=== PATIENT | female | born 1990 | race Caucasian/White ===

== ENCOUNTER 2017-01-07 04:00 | Emergency (ER) | payer OTHER ==
[~2017-01-07] VITALS: Ht 167.6 cm; Wt 128.6 kg
[~2017-01-07 04:00] MED LIST: ALBU6.7H INH; CYCL-36 PO; SULF1TAB47 PO
[2017-01-07 04:08] VITALS: BP 196/120; PULSE 87; RESP 18; TEMP 98.4; O2SAT 97
[2017-01-07] MEDS ORDERED: SODIUM CHLOR 0.9% 1000 ML INJ 1,000 ML IV ONE (04:26)
[2017-01-07] MEDS ORDERED: SODIUM CHLORIDE 0.9% FLUSH 10 ML FLUSH IVF PRN (04:30)
[2017-01-07] MEDS ORDERED: HYDROmorphone HCL PF 1 MG/ML VIAL IV PUSH ONE (04:30)
[2017-01-07] MEDS ORDERED: ONDANSETRON HCL 4 MG/2 ML VIAL IV PUSH ONE (04:30)
[2017-01-07] MEDS ORDERED: KETOROLAC TROMETHAMINE 30 MG/ML (IVP) VIAL IV PUSH ONE (04:30)
--- NOTE | 2017-01-07 04:30 | PD ---
HPI Chief Complaint: Flank/Kidney Pain Time Seen by Provider: 04:13 Travel History International Travel<30 days: No Contact w/Intl Traveler<30days: No Traveled to known affect area: No History of Present Illness HPI The patient is a 26-year-old female that complains of sudden onset left flank pain at 0300 this morning. She does have a history of kidney stones. She does not have a local urologist. She denies any fever, dysuria, frequency or urgency. She does have nausea without vomiting. Her pain is sharp and an 8/ 10. He states this feels like her previous kidney stones. [facility] Past Medical History Asthma: Yes Anxiety: Yes Depression: Yes Cancer: No Cardiovascular Problems: No Diminished Hearing: No Endocrine: No Genitourinary: No Immune Disorder: No Musculoskeletal: No Psychiatric: Yes Reproductive: No Respiratory: Yes (HX PNEUMONIA) Immunizations Current: Yes Tetanus Vaccination: Unknown Influenza Vaccination: No ?: Not LMP: 01-07-17 Ovarian Cysts: Yes Past Surgical History Section: Yes Gynecologic Surgery: Yes (ovarian cyst drainage - Jan 15) Social History Alcohol Use: No Tobacco Use: No Substance Use: No Allergies-Medications (Allergen,Severity, Reaction): Coded Allergies: penicillin G (Unverified Allergy, Mild, 01/07/17) Reported Meds & Prescriptions Reported Meds & Active Scripts Active No Active Prescriptions or Reported Medications Review of Systems Except as stated in HPI: all other systems reviewed are Neg Physical Exam Narrative GENERAL: The patient is alert, oriented 3 in moderate to severe distress with her left flank pain. Her vital signs show blood pressure 196/120 but otherwise normal. SKIN: Focused skin assessment warm/dry. No skin rashes noted. HEAD: Atraumatic. Normocephalic. EYES: Pupils equal and round. No scleral icterus. No injection or drainage. ENT: No nasal bleeding or discharge. Mucous membranes pink and moist. NECK: Trachea midline. No JVD. CARDIOVASCULAR: Regular rate and rhythm. No murmur appreciated. RESPIRATORY: No accessory muscle use. Clear to auscultation. Breath sounds equal bilaterally. GASTROINTESTINAL: Abdomen soft, with slight tenderness to direct palpation over the left flank and half way to the left UVJ from the left kidney, nondistended. Hepatic and splenic margins not palpable. No guarding or rebound is present. MUSCULOSKELETAL: No obvious deformities. No clubbing. No cyanosis. No edema. NEUROLOGICAL: Awake and alert. No obvious cranial nerve deficits. Motor grossly within normal limits. Normal speech. PSYCHIATRIC: Appropriate mood and affect; insight and judgment normal. Data Data Last Documented VS Vital Signs Date Time Temp Pulse Resp B/P (MAP) Pulse Ox O2 Delivery O2 Flow Rate FiO2 01/07/17 05:10 16 01/07/17 04:44 89 147/87 (107) 97 Room Air 01/07/17 04:08 98.4 Orders Orders Complete Blood Count With Diff (01/07/17 04:26) Basic Metabolic Panel (Bmp) (01/07/17 04:26) Ct Abd/Pel W/O Iv Contrast (01/07/17 04:26) Ecg Monitoring (01/07/17 04:26) Iv Access Insert/Monitor (01/07/17 04:26) Ketorolac Inj (Toradol Inj) (01/07/17 04:30) Ondansetron Inj (Zofran Inj) (01/07/17 04:30) Sodium Chloride 0.9% Flush (Ns Flush) (01/07/17 04:30) Sodium Chlor 0.9% 1000 Ml Inj (Ns 1000 M (01/07/17 04:26) Hydromorphone Pf Inj (Dilaudid Pf Inj) (01/07/17 04:30) Urinalysis - C+S If Indicated (01/07/17 04:30) Ed Urine Pregnancytest Poc (01/07/17 04:31) Tamsulosin (Flomax) (01/07/17 04:45) Labs Laboratory Tests Test 01/07/17 04:30 White Blood Count 8.9 TH/MM3 Red Blood Count 4.63 MIL/MM3 Hemoglobin 13.3 GM/DL Hematocrit 39.9 % Mean Corpuscular Volume 86.2 FL Mean Corpuscular Hemoglobin 28.7 PG Mean Corpuscular Hemoglobin Concent 33.3 % Red Cell Distribution Width 12.4 % Platelet Count 341 TH/MM3 Mean Platelet Volume 7.6 FL Neutrophils (%) (Auto) 52.7 % Lymphocytes (%) (Auto) 37.0 % Monocytes (%) (Auto) 7.4 % Eosinophils (%) (Auto) 2.4 % Basophils (%) (Auto) 0.5 % Neutrophils # (Auto) 4.7 TH/MM3 Lymphocytes # (Auto) 3.3 TH/MM3 Monocytes # (Auto) 0.7 TH/MM3 Eosinophils # (Auto) 0.2 TH/MM3 Basophils # (Auto) 0.0 TH/MM3 CBC Comment DIFF FINAL Differential Comment Urine Color YELLOW Urine Turbidity SLIGHT Urine pH 6.0 Urine Specific [place] 1.019 Urine Protein NEG mg/dL Urine Glucose (UA) NEG mg/dL Urine Ketones NEG mg/dL Urine Occult Blood LARGE Urine Nitrite NEG Urine Bilirubin NEG Urine Leukocyte Esterase SMALL Urine RBC 20-24 /hpf Urine WBC 6-8 /hpf Urine Squamous Epithelial Cells > 8 /hpf Urine Bacteria FEW /hpf Urine Yeast with Hyphae OCC Urine Yeast (Budding) OCC Microscopic Urinalysis Comment CULT NOT INDICATED Blood Urea Nitrogen 11 MG/DL Creatinine 0.84 MG/DL Random Glucose 97 MG/DL Calcium Level 8.1 MG/DL Sodium Level 141 MEQ/L Potassium Level 3.5 MEQ/L Chloride Level 106 MEQ/L Carbon Dioxide Level 27.5 MEQ/L Anion Gap 8 MEQ/L Estimat Glomerular Filtration Rate 81 ML/MIN [facility] Medical Decision Making Medical Screen Exam Complete: Yes Emergency Medical Condition: Yes Medical Record Reviewed: Yes Interpretation(s) [id number] urine test is negative. The urinalysis shows slight turbidity, large blood, small leukocyte esterase with 20-24 red cells and 6-8 white cells and is otherwise unremarkable and culture is not indicated. The basic metabolic profile shows a GFR of 81 but is otherwise normal. The CBC is normal. The CT abdomen/pelvis without IV contrast shows 2 stones in the distal left ureter. One measures 3 mm and one measures 6 mm. These cause left hydroureter and obstruction of the upper pole of the collecting system. 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 Also there are bilateral nonobstructing renal stones measuring up to 6 mm. Differential Diagnosis Ureteral stone, urinary tract infection, colitis, , ectopic , ruptured ovarian cyst Narrative Course The patient has 2 ureteral stones. One measures 3 mm and the other 6 x 3 mm. They're at least 4 other nonobstructing right renal stones measuring up to 6 mm. It is now 0545 and the patient is fairly comfortable. She will get Flomax , Phenergan, Percocet and Motrin. Diagnosis Primary Impression: Left ureteral calculus Additional Instructions: As we discussed, take the ibuprofen regularly, 1 tablet 3 times daily. The Flomax also is taken regularly, once daily. The Flomax opens up the ureter. Also, as we discussed, do not drink alcohol or drive on the Percocet. Phenergan , which is for nausea, can also make you feel a little sleepy. Call urology Tuesday to set up appointment. They will need to advise you how to get rid of the stones that you are passing as well as the ones in your kidney. Med/Other Pt SpecificInfo: Prescription(s) given Scripts Oxycodone-Acetaminophen (Percocet) 7.5-325 mg Tab 1 TAB PO Q4H Y for PAIN, #30 TAB 0 Refills Prov: Mahesh Gregorio MD 01/07/17 Promethazine (Phenergan) 25 Mg Tablet 25 MG PO Q6H Y for NAUSEA OR VOMITING, #30 TAB 0 Refills Prov: Mahesh Gregorio MD 01/07/17 Tamsulosin (Flomax) 0.4 Mg Cap 0.4 MG PO HS for Manage Prostate Problems, #30 CAP 0 Refills Prov: Mahesh Gregorio MD 01/07/17 Ibuprofen (Ibuprofen) 600 Mg Tab 600 MG PO TID, #33 TAB 0 Refills Prov: Mahesh Gregorio MD 01/07/17 Disposition: 01 DISCHARGE HOME Condition: Stable Mahesh Gregorio MD Jan 07, 2017 04:30
[2017-01-07 04:38] LABS: BLOOD, URINE LARGE (NEG); GLUCOSE,URINE NEG (NEG); KETONE, URINE NEG (NEG); NITRITE,URINE NEG (NEG)
[2017-01-07 04:39] LABS: AUTOMATED NEUTROPHIL # 4.7 TH/MM3 (1.8-7.7); BASOPHIL % 0.5 % (0.0-2.0); EOSINOPHIL # 0.2 TH/MM3 (0-0.4); EOSINOPHIL % 2.4 % (0.0-4.0); HEMATOCRIT 39.9 % (35.0-46.0); HEMO FLAGS DIFF FINAL; LYMPHOCYTE # 3.3 TH/MM3 (1.0-4.8); MEAN CELL VOLUME 86.2 FL (80.0-100.0); MEAN CORPUSCULAR HEMOGLOBIN 28.7 PG (27.0-34.0); MEAN CORPUSCULAR HGB CONC 33.3 % (32.0-36.0); MONO % 7.4 % (0.0-8.0); NEUT % 52.7 % (16.0-70.0); PLATELET COUNT 341 TH/MM3 (150-450); RED BLOOD COUNT 4.63 MIL/MM3 (4.00-5.30); RED CELL DISTRIBUTION WIDTH 12.4 % (11.6-17.2); WHITE BLOOD COUNT 8.9 TH/MM3 (4.0-11.0)
[2017-01-07 04:40] VITALS: BP 185/100; PULSE 81; RESP 18; O2SAT 97
[2017-01-07 04:41] LABS: URINE COLOR YELLOW (YELLW/STRAW)
[2017-01-07 04:44] VITALS: BP 147/87; PULSE 89; RESP 16; O2SAT 97
[2017-01-07 04:44] LABS: BACTERIA, URINE FEW /hpf; COMMENT (UR) CULT NOT INDICATED; CULTURE IF INDICATED CULT NOT INDICATED; SQUAMOUS EPITHELIAL CELL URINE > 8 /hpf (0-5)
[2017-01-07] MEDS ORDERED: TAMSULOSIN HCL 0.4 MG CAP PO ONE (04:45)
[2017-01-07 04:48] LABS: POTASSIUM 3.5 MEQ/L (3.5-5.1)
[2017-01-07 04:51] LABS: BICARBONATE 27.5 MEQ/L (21.0-32.0)
--- NOTE | 2017-01-07 05:33 | RADRPT ---
EXAM DATE/TIME: 01/07/2017 04:46 [facility] COMPARISON: No previous studies available for comparison. INDICATIONS : Left flank pain. ORAL CONTRAST: No oral contrast ingested. RADIATION DOSE: 27.81 CTDIvol (mGy) ; Patient body habitus MEDICAL HISTORY : Renal calculi. Ovarian cysts, renal stent SURGICAL HISTORY : section. ENCOUNTER: Initial ACUITY: 1 day PAIN SCALE: 8/10 LOCATION: Left flank TECHNIQUE: Volumetric scanning of the abdomen and pelvis was performed. Using automated exposure control and ad justment of the mA and/or kV according to patient size, radiation dose was kept as low as reasonably achievable to obtain optimal diagnostic quality images. DICOM format image data is available electro nically for review and comparison. FINDINGS: LOWER LUNGS: Not visualized. LIVER: Homogeneous density without lesion. There is no dilation of the biliary tree. No calcified gallston es. SPLEEN: Normal size without lesion. PANCREAS: Within normal limits. 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 There are at least 4 nonobstructing right renal stones measuring up to 6 mm and there are multiple small left nonobstructing renal stones. An exophytic cyst arises from the l eft mid kidney measuring 1.4 cm. ADRENAL GLANDS: Within normal limits. VASCULAR: There is no aortic aneurysm. BOWEL/MESENTERY: The stomach, small bowel, and colon demonstrate no acute abnormality. There is no free intraperitone al air or fluid. ABDOMINAL WALL: Within normal limits. RETROPERITONEUM: There is no lymphadenopathy. BLADDER: No wall thickening or mass. REPRODUCTIVE: No acute abnormality. A menstrual cup is present within the vagina. INGUINAL: There is no lymphadenopathy or hernia. MUSCULOSKELETAL: No acute abnormality. CONCLUSION: 1. There are 2 stones in the distal left ureter measuring 3 mm and 6 mm and causing left hydroureter and obstruction of the left upper pole collecting system. There is a duplicated left collecting syst em. 2. There are bilateral nonobstructing renal stones measuring up to 6 mm. Som Strickland MD on January 07, 2017 at 5:24 Board Certified Radiologist. This report was verified electronically.
[2017-01-07 05:43] VITALS: BP 166/98; PULSE 81; RESP 18; O2SAT 98
[2017-01-07] MEDS ORDERED: PERC7.5T13 PO (05:46)
[2017-01-07] MEDS ORDERED: IBUP-232 PO (05:46)
[2017-01-07] MEDS ORDERED: PROM25TA10 PO (05:46)
[2017-01-07] MEDS ORDERED: TAMS5CAP PO (05:46)
== END 2017-01-07 06:05 | disposition home or self-care (01) ==
LOC: PHED 04:00
DX: N20.1 Calculus of ureter (principal); N20.0 Calculus of kidney; R11.0 Nausea; Z87.442 Personal history of urinary calculi; Z87.09 Personal history of other diseases of the respiratory system; Z86.59 Personal history of other mental and behavioral disorders; Z87.42 Personal history of other diseases of the female genital tract
CPT/HCPCS: 74176; 80048; 81001; 84703; 85025; 96361; 96374; 96375; 99285; J1170; J1885; J2405; J7030

== ENCOUNTER 2017-02-15 17:45 | Emergency (ER) | payer OTHER ==
[~2017-02-15 17:45] MED LIST changes: -ALBU6.7H INH; -CYCL-36 PO; +IBUP-232 PO; +PERC7.5T13 PO; +PROM25TA10 PO; -SULF1TAB47 PO; +TAMS5CAP PO
[2017-02-15 17:57] VITALS: BP 148/83; PULSE 101; RESP 20; TEMP 97.7; O2SAT 97
[2017-02-15] MEDS ORDERED: ACETAMINOPHEN/HYDROcodone 325 MG/5 MG TAB PO ONE (19:30)
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
[2017-02-15] MEDS ORDERED: CYCL10TA PO (19:52)
[2017-02-15] MEDS ORDERED: DICL75TA PO (19:52)
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
== END 2017-02-15 20:38 | disposition home or self-care (01) ==
LOC: NEPK 17:45
DX: M54.2 Cervicalgia (principal); M54.9 Dorsalgia, unspecified; N20.0 Calculus of kidney; V49.49XA Driver injured in collision with other motor vehicles in traffic accident, initial encounter; Y92.411 Interstate highway as the place of occurrence of the external cause; Z87.442 Personal history of urinary calculi
CPT/HCPCS: 72040; 72072; 99284

== ENCOUNTER 2017-03-24 19:38 | Emergency (ER) | payer OTHER ==
[~2017-03-24] VITALS: Ht 167.6 cm; Wt 126.0 kg
[~2017-03-24 19:38] MED LIST changes: +CYCL10TA PO; +DICL75TA PO
[2017-03-24 19:48] VITALS: BP 170/100; PULSE 89; RESP 18; TEMP 98.2; O2SAT 100
[2017-03-24 20:34] VITALS: BP 103/71; PULSE 86; RESP 16; O2SAT 100
[2017-03-24 20:56] VITALS: BP_SYST 125; BP_SYST 130; BP_DIAS 65; BP_DIAS 85; RESP 16; O2SAT 100
[2017-03-24] MEDS ORDERED: SODIUM CHLORIDE 0.9% FLUSH 10 ML FLUSH IVF PRN (21:00)
--- NOTE | 2017-03-24 21:18 | RADRPT ---
EXAM DATE/TIME: 03/24/2017 21:05 [facility] COMPARISON: No previous studies available for comparison. INDICATIONS : Headaches and heart palpitations. MEDICAL HISTORY : None. SURGICAL HISTORY : None. ENCOUNTER: Initial ACUITY: 1 day PAIN SCORE: 0/10 LOCATION: Bilateral chest FINDINGS: A single view of the chest demonstrates the lungs to be symmetrically aerated without evidence of mas s, infiltrate or effusion. The cardiomediastinal contours are unremarkable. Osseous structures are intact. CONCLUSION: 1. No acute findings. Ga العلي MD on March 24, 2017 at 21:17 Board Certified Radiologist. This report was verified electronically.
[2017-03-24 21:27] LABS: AUTOMATED NEUTROPHIL # 4.5 TH/MM3 (1.8-7.7); BASOPHIL # 0.1 TH/MM3 (0-0.2); BASOPHIL % 1.3 % (0.0-2.0); EOSINOPHIL # 0.2 TH/MM3 (0-0.4); EOSINOPHIL % 2.4 % (0.0-4.0); HEMATOCRIT 37.7 % (35.0-46.0); HEMOGLOBIN 12.9 GM/DL (11.6-15.3); LYMPH % 31.6 % (9.0-44.0); LYMPHOCYTE # 2.5 TH/MM3 (1.0-4.8); MEAN CELL VOLUME 86.6 FL (80.0-100.0); MEAN CORPUSCULAR HEMOGLOBIN 29.7 PG (27.0-34.0); MEAN CORPUSCULAR HGB CONC 34.3 % (32.0-36.0); MEAN PLATELET VOLUME 7.8 FL (7.0-11.0); MONO % 6.2 % (0.0-8.0); MONOCYTE # 0.5 TH/MM3 (0-0.9); NEUT % 58.5 % (16.0-70.0); PLATELET COUNT 284 TH/MM3 (150-450); RED BLOOD COUNT 4.35 MIL/MM3 (4.00-5.30); RED CELL DISTRIBUTION WIDTH 11.9 % (11.6-17.2); WHITE BLOOD COUNT 7.8 TH/MM3 (4.0-11.0)
[2017-03-24 21:34] LABS: CHLORIDE 107 MEQ/L (98-107); SODIUM (NA) 139 MEQ/L (136-145)
[2017-03-24 21:37] LABS: BICARBONATE 30.3 MEQ/L (21.0-32.0); BLOOD UREA NITROGEN 10 MG/DL (7-18); CALCIUM 8.3 MG/DL (8.5-10.1); GLUCOSE,RANDOM 98 MG/DL (74-106); MAGNESIUM 2.2 MG/DL (1.5-2.5)
[2017-03-24 21:38] LABS: BILIRUBIN, URINE NEG (NEG); BLOOD, URINE NEG (NEG); GLUCOSE,URINE NEG (NEG); KETONE, URINE NEG (NEG); NITRITE,URINE NEG (NEG); URINE LEUKOCYTE ESTERASE NEG (NEG)
[2017-03-24 21:39] LABS: INTERNATIONAL NORMALIZED RATIO 1.1 RATIO
[2017-03-24 21:41] LABS: CREATININE 0.71 MG/DL (0.50-1.00); GLOMERULAR FILTRATION RATE 97 ML/MIN (>89)
[2017-03-24 21:45] LABS: TROPONIN I LESS THAN 0.02 NG/ML (0.02-0.05)
[2017-03-24 21:50] LABS: URINE COLOR YELLOW (YELLW/STRAW)
[2017-03-24 21:51] LABS: BACTERIA, URINE FEW /hpf; SQUAMOUS EPITHELIAL CELL URINE 0-5 /hpf (0-5); WBC, URINE 0-2 /hpf (0-5)
[2017-03-24 22:03] VITALS: BP 142/81; PULSE 81; RESP 18; O2SAT 100
[2017-03-24] MEDS: KETOROLAC TROMETHAMINE 30 MG/ML (IVP) VIAL IV PUSH ONE ×2 (22:30→22:39)
--- NOTE | 2017-03-24 22:52 | PD ---
HPI Chief Complaint: Cardiac Complaint Time Seen by Provider: 20:49 Travel History International Travel<30 days: No Contact w/Intl Traveler<30days: No Traveled to known affect area: No History of Present Illness HPI 27-year-old female presents to the emergency department for complaint of elevated blood pressure and headache. Patient states that she has been diagnosed with hypertension and was previously placed on HCTZ but has not been taking any blood pressure medications of late. Patient has been doing well. Patient states when she noticed that she was having a headache she decided to check her blood pressure and identify that it was elevated. Patient states she has a history of migraine headaches has had them for some time and typically has an episode once a week with photophobia as well as sound sensitivity headache pain and nausea. Patient denies sudden onset thunderclap or worst ever headache. Patient denies any visual disturbance other than mild photophobia. Patient had no nausea or vomiting. Patient states when she arrived to the emergency department she becomes very anxious in the hospital setting started noticing some chest tightness patient also had some mild shortness of breath and while in the waiting room used her albuterol inhaler as she has a history of asthma and her symptoms resolved. Patient denies any upper extremity or lower extremity numbness tingling or weakness. Patient had no altered mentation change in speech or balance disturbance. Patient rates her overall pain 8/10 in intensity. She states she is also concerned that she may be because she has been attempting to become and last intercourse was 3 days ago. Last period was last month, 03/06/17, and normal for her. Patient also complains of left flank pain and is concerned she may have a kidney stone because she has kidney stone history no dysuria frequency urgency or hematuria also no report of vaginal discharge or vaginal bleeding. [facility] Past Medical History Narrative Medical Clinical morbid obesity, kidney stone, migraine, asthma, anxiety depression, hypertension; ovarian cyst drainage; no tobacco use; nursing notes reviewed Asthma: Yes Anxiety: Yes Depression: Yes Cancer: No Cardiovascular Problems: Yes (hypertension) Diminished Hearing: No Endocrine: No Genitourinary: No Immune Disorder: No Musculoskeletal: No Psychiatric: Yes Reproductive: No Respiratory: Yes (HX PNEUMONIA) Immunizations Current: Yes Tetanus Vaccination: < 5 Years Influenza Vaccination: No ?: Unknown LMP: 03/06/17 Ovarian Cysts: Yes Past Surgical History Section: Yes Gynecologic Surgery: Yes (ovarian cyst drainage - Jan 15) Other Surgery: Yes Social History Alcohol Use: No Tobacco Use: No Substance Use: No Allergies-Medications (Allergen,Severity, Reaction): Coded Allergies: penicillin G (Unverified Allergy, Mild, 01/07/17) Reported Meds & Prescriptions Reported Meds & Active Scripts Active Flexeril (Cyclobenzaprine HCl) 10 Mg Tab 10 Mg PO TID Diclofenac Sodium DR (Diclofenac Sodium) 75 Mg Tabdr 75 Mg PO BID Percocet (Oxycodone-Acetaminophen) 7.5-325 mg Tab 1 Tab PO Q4H PRN Phenergan (Promethazine HCl) 25 Mg Tablet 25 Mg PO Q6H PRN Flomax (Tamsulosin HCl) 0.4 Mg Cap 0.4 Mg PO HS Ibuprofen 600 Mg Tab 600 Mg PO TID Review of Systems Except as stated in HPI: all other systems reviewed are Neg General / Constitutional: No: Fever, Chills Eyes: Positive: Photophobia, No: Diploplia, Blurred Vision HENT: Positive: Headaches, No: Neck Stiffness, Neck Pain Cardiovascular: Positive: Chest Pain or Discomfort (transient -none now) Respiratory: Positive: Shortness of Breath (with asthma symptoms), No: Cough Gastrointestinal: No: Nausea, Vomiting, Diarrhea, Abdominal Pain Genitourinary: No: Urgency, Frequency, Dysuria Musculoskeletal: No: Myalgias, Arthralgias Skin: No Rash Neurologic: Positive: Headache, No: Weakness, Dizziness, Syncope, Focal Abnormalities, Coordination Problem, Ataxia, Change in Mentation, Slurred Speech , Paresthesia Psychiatric: No: Anxiety Hematologic/Lymphatic: No: Lymph Node Enlargement Physical Exam Narrative GENERAL: Well-developed well-nourished female in no acute distress or respiratory distress; GCS 15 SKIN: Warm and dry. HEAD: Atraumatic. Normocephalic. EYES: Pupils equal and round. No scleral icterus. No injection or drainage. ENT: No nasal bleeding or discharge. Mucous membranes pink and moist. NECK: Trachea midline. No JVD. CARDIOVASCULAR: Regular rate and rhythm. RESPIRATORY: No accessory muscle use. Clear to auscultation. Breath sounds equal bilaterally. GASTROINTESTINAL: Abdomen soft, non-tender, nondistended. Hepatic and splenic margins not palpable. MUSCULOSKELETAL: Extremities without clubbing, cyanosis, or edema. No obvious deformities. NEUROLOGICAL: Awake and alert. No obvious cranial nerve deficits. Motor grossly within normal limits. Five out of 5 muscle strength in the arms and legs. Normal speech. PSYCHIATRIC: Appropriate mood and affect; insight and judgment normal. Data Data Last Documented VS Vital Signs Date Time Temp Pulse Resp B/P (MAP) Pulse Ox O2 Delivery O2 Flow Rate FiO2 03/24/17 22:03 81 18 142/81 (101) 100 Room Air 03/24/17 19:48 98.2 Orders Orders Electrocardiogram (03/24/17 20:49) Basic Metabolic Panel (Bmp) (03/24/17 20:49) Ckmb (Isoenzyme) Profile (03/24/17 20:49) Complete Blood Count With Diff (03/24/17 20:49) Magnesium (Mg) (03/24/17 20:49) Prothrombin Time / Inr (Pt) (03/24/17 20:49) Act Partial Throm Time (Ptt) (03/24/17 20:49) Troponin I (03/24/17 20:49) Chest, Single Ap (03/24/17 20:49) Ecg Monitoring (03/24/17 20:49) Bilateral Bp Monitoring (03/24/17 20:49) Iv Access Insert/Monitor (03/24/17 20:49) Oximetry (03/24/17 20:49) Oxygen Administration (03/24/17 20:49) Sodium Chloride 0.9% Flush (Ns Flush) (03/24/17 21:00) Ed Urine Pregnancytest Poc (03/24/17 20:49) Urinalysis - C+S If Indicated (03/24/17 21:12) CKMB (03/24/17 21:15) CKMB% (03/24/17 21:15) Ct Abd/Pel W/O Iv Contrast (03/24/17 ) Ketorolac Inj (Toradol Inj) (03/24/17 22:30) Ed Discharge Order (03/24/17 22:43) Labs Laboratory Tests Test 03/24/17 21:12 03/24/17 21:15 Urine Color YELLOW Urine Turbidity CLEAR Urine pH 7.0 Urine Specific [place] 1.021 Urine Protein NEG mg/dL Urine Glucose (UA) NEG mg/dL Urine Ketones NEG mg/dL Urine Occult Blood NEG Urine Nitrite NEG Urine Bilirubin NEG Urine Leukocyte Esterase NEG Urine WBC 0-2 /hpf Urine Squamous Epithelial Cells 0-5 /hpf Urine Bacteria FEW /hpf Microscopic Urinalysis Comment CULT NOT INDICATED White Blood Count 7.8 TH/MM3 Red Blood Count 4.35 MIL/MM3 Hemoglobin 12.9 GM/DL Hematocrit 37.7 % Mean Corpuscular Volume 86.6 FL Mean Corpuscular Hemoglobin 29.7 PG Mean Corpuscular Hemoglobin Concent 34.3 % Red Cell Distribution Width 11.9 % Platelet Count 284 TH/MM3 Mean Platelet Volume 7.8 FL Neutrophils (%) (Auto) 58.5 % Lymphocytes (%) (Auto) 31.6 % Monocytes (%) (Auto) 6.2 % Eosinophils (%) (Auto) 2.4 % Basophils (%) (Auto) 1.3 % Neutrophils # (Auto) 4.5 TH/MM3 Lymphocytes # (Auto) 2.5 TH/MM3 Monocytes # (Auto) 0.5 TH/MM3 Eosinophils # (Auto) 0.2 TH/MM3 Basophils # (Auto) 0.1 TH/MM3 CBC Comment DIFF FINAL Differential Comment Prothrombin Time 11.0 SEC Prothromb Time International Ratio 1.1 RATIO Activated Partial Thromboplast Time 29.4 SEC Blood Urea Nitrogen 10 MG/DL Creatinine 0.71 MG/DL Random Glucose 98 MG/DL Calcium Level 8.3 MG/DL Magnesium Level 2.2 MG/DL Sodium Level 139 MEQ/L Potassium Level 3.8 MEQ/L Chloride Level 107 MEQ/L Carbon Dioxide Level 30.3 MEQ/L Anion Gap 2 MEQ/L Estimat Glomerular Filtration Rate 97 ML/MIN Total Creatine Kinase 227 U/L Creatine Kinase MB 2.9 NG/ML Troponin I LESS THAN 0.02 NG/ML [facility] Medical Decision Making Medical Screen Exam Complete: Yes Emergency Medical Condition: Yes Medical Record Reviewed: Yes Interpretation(s) EKG: Normal sinus rhythm rate [address] elevation injury pattern or ectopy noted poc hcg: negative trop: 0.02, not elevated; CK: 227, mildly elevated with mb 2.9, not elevated MB% : 1.2%, not elevated Last Impressions Chest X-Ray 03/24/[id number] Signed Impressions: Service Date/Time: March 21:05 - CONCLUSION: 1. No acute findings. Ga العلي MD CBC & BMP Diagram 03/24/17 21:15 Calcium Level 8.3 L, Magnesium Level 2.2 Vital Signs Date Time Temp Pulse Resp B/P (MAP) Pulse Ox O2 Delivery O2 Flow Rate FiO2 03/24/17 22:03 81 18 142/81 (101) 100 Room Air 03/24/17 20:56 100 Room Air 03/24/17 20:56 130/85 (100) 125/65 (85) 03/24/17 20:56 16 100 Room Air 03/24/17 20:35 Room Air 03/24/17 20:34 86 16 103/71 (82) 100 Room Air 03/24/17 19:48 98.2 89 18 170/100 (123) 100 Differential Diagnosis Uncontrolled hypertension, atypical chest pain, , migraine, asthma Narrative Course Patient normotensive upon arrival to the exam room concerned about [id number] performed which was negative; specimens collected and sent for resulting including EKG and chest x-ray performed EKG sinus rhythm no acute injury pattern chest x-ray no acute process lab values found to be in normal range point. HCG negative Offered CT abdomen pelvis kidney stone protocol due to history of kidney stones and complaint of left flank pain patient declined imaging study and declined Toradol as she is concerned that she may still be even though she had a negative test and states it may be too early to detect her . Patient offered acetaminophen is otherwise stable for outpatient management and follow-up with her primary care provider. Diagnosis Primary Impression: Cephalgia Additional Impression: Left flank pain Referrals: Primary Care Physician call for appointment Patient Instructions: General Instructions Additional Instructions: Take acetaminophen as needed for discomfort/pain Follow-up with your primary care provider Return to the emergency department for any concerns or change in condition Increase fluid hydration Disposition: 01 DISCHARGE HOME Condition: Stable Norma Red MD Mar 24, 2017 22:52
[2017-03-24 23:51] VITALS: BP 126/78
--- NOTE | 2017-03-26 00:24 | EKG ---
Date Performed: 03/24/2017 Time Performed: 20:59:25 PTAGE: 27 years EKG: Sinus rhythm NORMAL ECG PREVIOUS TRACING : 08/30/2010 23.15 Since the prior tracing, there has been no significant hale DOCTOR: Wang Knapp Interpretating Date/Time 03/26/2017 00:22:46
== END 2017-03-25 | disposition home or self-care (01) ==
LOC: PHED 19:38
DX: R51 Headache (principal); R10.9 Unspecified abdominal pain; I10 Essential (primary) hypertension; E66.01 Morbid (severe) obesity due to excess calories; J45.909 Unspecified asthma, uncomplicated; F41.9 Anxiety disorder, unspecified; F32.9 Major depressive disorder, single episode, unspecified; Z87.442 Personal history of urinary calculi; Z88.0 Allergy status to penicillin; Z79.899 Other long term (current) drug therapy
CPT/HCPCS: 71045; 80048; 81001; 82550; 82552; 83735; 84484; 84703; 85025; 85610; 85730; 93005; J1885

== ENCOUNTER 2017-05-11 21:00 | Emergency (ER) | payer OTHER ==
[~2017-05-11] VITALS: Ht 167.6 cm; Wt 126.1 kg
[2017-05-11 21:03] VITALS: BP 186/92; PULSE 97; RESP 16; TEMP 98.7; O2SAT 100
[2017-05-11] MEDS ORDERED: SODIUM CHLOR 0.9% 1000 ML INJ 1,000 ML IV SCH (21:57)
[2017-05-11] MEDS ORDERED: SODIUM CHLORIDE 0.9% FLUSH 10 ML FLUSH IV FLUSH PRN (22:00)
[2017-05-11 22:02] VITALS: O2SAT 97
--- NOTE | 2017-05-11 22:05 | PD ---
HPI Chief Complaint: Abdominal Pain Time Seen by Provider: 21:46 Travel History International Travel<30 days: No Contact w/Intl Traveler<30days: No Traveled to known affect area: No History of Present Illness HPI Patient is a 27-year-old female who presents the emergency room with complaints of low abdominal pain. Patient reports that since 2 PM today, she has been having constant left lower pelvic pain. Patient reports that she has history of ovarian cyst in the past, patient reports that her symptoms feel consistent to an ovarian cyst. Reports that she was also concerned that she may be , reports that she is 8 days late on her menstrual cycle, reports that she did take a home test which was negative. Patient unsure if her test was negative because of early and would like blood work to confirm or disprove . Patient denies any vaginal discharge or bleeding , patient reports that she has 1 sexual partner which is her . Patient denies any fever or chills, no other complaints at this time. Patient reports that she has history of right-sided oophorectomy in the past. PFSH Past Medical History Asthma: Yes Anxiety: Yes Depression: Yes Cancer: No Cardiovascular Problems: Yes (hypertension) Diminished Hearing: No Endocrine: No Genitourinary: No Immune Disorder: No Musculoskeletal: No Psychiatric: Yes Reproductive: No Respiratory: Yes (HX PNEUMONIA) Immunizations Current: Yes Tetanus Vaccination: < 5 Years Influenza Vaccination: No ?: Unknown LMP: 04/03/17 : 2 Para: 2 Ovarian Cysts: Yes Past Surgical History Section: Yes (x2) Gynecologic Surgery: Yes (ovarian cyst drainage - Jan 15; right ovary removed ) Other Surgery: Yes Social History Alcohol Use: No Tobacco Use: No Substance Use: No Allergies-Medications (Allergen,Severity, Reaction): Coded Allergies: penicillin G (Verified Allergy, Mild, 05/11/17) Reported Meds & Prescriptions Reported Meds & Active Scripts Active Flexeril (Cyclobenzaprine HCl) 10 Mg Tab 10 Mg PO TID Diclofenac Sodium DR (Diclofenac Sodium) 75 Mg Tabdr 75 Mg PO BID Percocet (Oxycodone-Acetaminophen) 7.5-325 mg Tab 1 Tab PO Q4H PRN Phenergan (Promethazine HCl) 25 Mg Tablet 25 Mg PO Q6H PRN Flomax (Tamsulosin HCl) 0.4 Mg Cap 0.4 Mg PO HS Ibuprofen 600 Mg Tab 600 Mg PO TID Review of Systems General / Constitutional: No: Fever Eyes: No: Visual changes HENT: No: Headaches Cardiovascular: No: Chest Pain or Discomfort Respiratory: No: Shortness of Breath Gastrointestinal: Positive: Abdominal Pain, No: Nausea, Vomiting, Diarrhea Genitourinary: Positive: Pelvic Pain, No: Dysuria Musculoskeletal: No: Pain Skin: No Rash Neurologic: No: Weakness Psychiatric: No: Depression Endocrine: No: Polydipsia Hematologic/Lymphatic: No: Easy Bruising Physical Exam Narrative GENERAL: Mild distress SKIN: Focused skin assessment warm/dry. HEAD: Atraumatic. Normocephalic. EYES: Pupils equal and round. No scleral icterus. No injection or drainage. ENT: No nasal bleeding or discharge. Mucous membranes pink and moist. NECK: Trachea midline. No JVD. CARDIOVASCULAR: Regular rate and rhythm. No murmur appreciated. RESPIRATORY: No accessory muscle use. Clear to auscultation. Breath sounds equal bilaterally. GASTROINTESTINAL: Abdomen soft, mild tenderness to left pelvis with no rebound or guarding, nondistended. Hepatic and splenic margins not palpable. : Pelvic exam performed with RN at bedside, pt with no CMT or adnexal tenderness, no vaginal discharge MUSCULOSKELETAL: No obvious deformities. No clubbing. No cyanosis. No edema. NEUROLOGICAL: Awake and alert. No obvious cranial nerve deficits. Motor grossly within normal limits. Normal speech. PSYCHIATRIC: Appropriate mood and affect; insight and judgment normal. Data Data Last Documented VS Vital Signs Date Time Temp Pulse Resp B/P (MAP) Pulse Ox O2 Delivery O2 Flow Rate FiO2 05/11/17 22:02 97 Room Air 05/11/17 21:03 98.7 97 16 186/92 (123) Orders Orders Complete Blood Count With Diff (05/11/17 21:57) Comprehensive Metabolic Panel (05/11/17 21:57) Prothrombin Time / Inr (Pt) (05/11/17 21:57) Act Partial Throm Time (Ptt) (05/11/17 21:57) Urinalysis - C+S If Indicated (05/11/17 21:57) Iv Access Insert/Monitor (05/11/17 21:57) Ecg Monitoring (05/11/17 21:57) Oximetry (05/11/17 21:57) Sodium Chlor 0.9% 1000 Ml Inj (Ns 1000 M (05/11/17 21:57) Sodium Chloride 0.9% Flush (Ns Flush) (05/11/17 22:00) Ed Urine Pregnancytest Poc (05/11/17 21:57) Beta Hcg (Quant/Titer) (05/11/17 21:57) Gc And Chlamydia Pcr (05/11/17 22:19) Morphine Inj (Morphine Inj) (05/11/17 23:00) Us Pelvis Comp W Doppler (05/11/17 ) Gc And Chlamydia Pcr (05/12/17 00:07) Wet Prep Profile (05/12/17 00:07) Morphine Inj (Morphine Inj) (05/12/17 00:15) Ct Abd/Pel W Iv Contrast(Rout) (05/12/17 00:10) Ketorolac Inj (Toradol Inj) (05/12/17 00:30) Labs Laboratory Tests Test 05/11/17 22:02 05/12/17 00:17 White Blood Count 10.5 TH/MM3 Red Blood Count 4.40 MIL/MM3 Hemoglobin 13.0 GM/DL Hematocrit 38.0 % Mean Corpuscular Volume 86.3 FL Mean Corpuscular Hemoglobin 29.4 PG Mean Corpuscular Hemoglobin Concent 34.1 % Red Cell Distribution Width 12.5 % Platelet Count 323 TH/MM3 Mean Platelet Volume 8.1 FL Neutrophils (%) (Auto) 64.5 % Lymphocytes (%) (Auto) 26.3 % Monocytes (%) (Auto) 5.8 % Eosinophils (%) (Auto) 2.3 % Basophils (%) (Auto) 1.1 % Neutrophils # (Auto) 6.8 TH/MM3 Lymphocytes # (Auto) 2.8 TH/MM3 Monocytes # (Auto) 0.6 TH/MM3 Eosinophils # (Auto) 0.2 TH/MM3 Basophils # (Auto) 0.1 TH/MM3 CBC Comment DIFF FINAL Differential Comment Prothrombin Time 11.1 SEC Prothromb Time International Ratio 1.1 RATIO Activated Partial Thromboplast Time 28.8 SEC Urine Color YELLOW Urine Turbidity CLEAR Urine pH 7.0 Urine Specific [place] 1.015 Urine Protein NEG mg/dL Urine Glucose (UA) NEG mg/dL Urine Ketones NEG mg/dL Urine Occult Blood NEG Urine Nitrite NEG Urine Bilirubin NEG Urine Urobilinogen 1.0 MG/DL Urine Leukocyte Esterase NEG Urine RBC 0-2 /hpf Urine WBC 0-2 /hpf Urine Squamous Epithelial Cells > 8 /hpf Urine Bacteria NONE /hpf Microscopic Urinalysis Comment CULT NOT INDICATED Blood Urea Nitrogen 10 MG/DL Creatinine 0.62 MG/DL Random Glucose 97 MG/DL Total Protein 7.3 GM/DL Albumin 3.4 GM/DL Calcium Level 8.5 MG/DL Alkaline Phosphatase 132 U/L Aspartate Amino Transf (AST/SGOT) 19 U/L Alanine Aminotransferase (ALT/SGPT) 37 U/L Total Bilirubin 0.3 MG/DL Sodium Level 139 MEQ/L Potassium Level 3.6 MEQ/L Chloride Level 104 MEQ/L Carbon Dioxide Level 29.2 MEQ/L Anion Gap 6 MEQ/L Estimat Glomerular Filtration Rate 114 ML/MIN Human Chorionic Gonadotropin, Quant LESS THAN 1 MIU/ML Clue Cells (Wet Prep) NONE SEEN Vaginal Trichomonas (Wet Prep) NONE SEEN Vaginal Yeast (Wet Prep) NONE SEEN MDM Medical Decision Making Medical Screen Exam Complete: Yes Emergency Medical Condition: Yes Medical Record Reviewed: Yes Interpretation(s) Vital Signs Date Time Temp Pulse Resp B/P (MAP) Pulse Ox O2 Delivery O2 Flow Rate FiO2 05/11/17 21:03 98.7 97 16 186/92 (123) 100 Differential Diagnosis Ovarian cyst, , ectopic , colitis Narrative Course During the course of the patients emergency department visit, the patients history, examination, and differential diagnosis were reviewed with the patient. The patient was placed on a vehicle monitor technician with oximetry and frequent blood pressure monitoring. The patient had an IV access obtained and blood work sent for analysis. The patient was initially provided IV fluids as well as IV morphine for pain The patients laboratory studies were reviewed and remarkable for Laboratory Tests Test 05/11/17 22:02 White Blood Count 10.5 TH/MM3 (4.0-11.0) Red Blood Count 4.40 MIL/MM3 (4.00-5.30) Hemoglobin 13.0 GM/DL (11.6-15.3) Hematocrit 38.0 % (35.0-46.0) Mean Corpuscular Volume 86.3 FL (80.0-100.0) Mean Corpuscular Hemoglobin 29.4 PG (27.0-34.0) Mean Corpuscular Hemoglobin Concent 34.1 % (32.0-36.0) Red Cell Distribution Width 12.5 % (11.6-17.2) Platelet Count 323 TH/MM3 (150-450) Mean Platelet Volume 8.1 FL (7.0-11.0) Neutrophils (%) (Auto) 64.5 % (16.0-70.0) Lymphocytes (%) (Auto) 26.3 % (9.0-44.0) Monocytes (%) (Auto) 5.8 % (0.0-8.0) Eosinophils (%) (Auto) 2.3 % (0.0-4.0) Basophils (%) (Auto) 1.1 % (0.0-2.0) Neutrophils # (Auto) 6.8 TH/MM3 (1.8-7.7) Lymphocytes # (Auto) 2.8 TH/MM3 (1.0-4.8) Monocytes # (Auto) 0.6 TH/MM3 (0-0.9) Eosinophils # (Auto) 0.2 TH/MM3 (0-0.4) Basophils # (Auto) 0.1 TH/MM3 (0-0.2) CBC Comment DIFF FINAL Differential Comment Prothrombin Time 11.1 SEC (9.8-11.6) Prothromb Time International Ratio 1.1 RATIO Activated Partial Thromboplast Time 28.8 SEC (24.3-30.1) Urine Color YELLOW (YELLW/STRAW) Urine Turbidity CLEAR (CLEAR) Urine pH 7.0 (5.0-8.5) Urine Specific [place] 1.015 (1.002-1.035) Urine Protein NEG mg/dL (NEG-TRACE) Urine Glucose (UA) NEG mg/dL (NEG) Urine Ketones NEG mg/dL (NEG) Urine Occult Blood NEG (NEG) Urine Nitrite NEG (NEG) Urine Bilirubin NEG (NEG) Urine Urobilinogen 1.0 MG/DL (LESS THAN Urine Leukocyte Esterase NEG (NEG) Urine RBC 0-2 /hpf (0-3) Urine WBC 0-2 /hpf (0-5) Urine Squamous Epithelial Cells > 8 /hpf (0-5) Urine Bacteria NONE /hpf (NONE) Microscopic Urinalysis Comment CULT NOT INDICATED Blood Urea Nitrogen 10 MG/DL (7-18) Creatinine 0.62 MG/DL (0.50-1.00) Random Glucose 97 MG/DL (74-106) Total Protein 7.3 GM/DL (6.4-8.2) Albumin 3.4 GM/DL (3.4-5.0) Calcium Level 8.5 MG/DL (8.5-10.1) Alkaline Phosphatase 132 U/L (45-117) Aspartate Amino Transf (AST/SGOT) 19 U/L (15-37) Alanine Aminotransferase (ALT/SGPT) 37 U/L (10-53) Total Bilirubin 0.3 MG/DL (0.2-1.0) Sodium Level 139 MEQ/L (136-145) Potassium Level 3.6 MEQ/L (3.5-5.1) Chloride Level 104 MEQ/L (98-107) Carbon Dioxide Level 29.2 MEQ/L (21.0-32.0) Anion Gap 6 MEQ/L (5-15) Estimat Glomerular Filtration Rate 114 ML/MIN (>89) Human Chorionic Gonadotropin, Quant LESS THAN 1 MIU/ML (0-5) Radiology studies were reviewed and remarkable for Last Impressions Pelvis Ultrasound 05/11/17 0000 Signed Impressions: Service Date/Time: Thursday, May 11, 2017 22:53 - CONCLUSION: Multiple small left ovarian cysts. Som Haque MD Pelvic ultrasound shows multiple small left-sided ovarian cysts, no evidence of torsion, patient reevaluated, patient reports that pain is more severe than before, patient is crying in pain, CT of the abdomen and pelvis ordered for further evaluation of etiology of abdominal pain. Patient signed out to care of Dr. Gregorio at change of shift, patient pending CT of abdomen and pelvis and dispo of patient Diagnosis Primary Impression: Abdominal pain Qualified Codes: R10.32 - Left lower quadrant pain Additional Impression: Ovarian cyst Qualified Codes: N83.202 - Unspecified ovarian cyst, left side Patient Instructions: General Instructions, Narcotic given in the ED Additional Instructions: Please provide patient with a copy of their lab work and studies at discharge* * Please follow up with your primary care doctor in 2-3 days Return to the ER if symptoms worsen or progress Return to the ER as needed Tea Hansen DO May 11, 2017 22:05
[2017-05-11 22:25] LABS: AUTOMATED NEUTROPHIL # 6.8 TH/MM3 (1.8-7.7); BASOPHIL # 0.1 TH/MM3 (0-0.2); BASOPHIL % 1.1 % (0.0-2.0); BILIRUBIN, URINE NEG (NEG); BLOOD, URINE NEG (NEG); EOSINOPHIL # 0.2 TH/MM3 (0-0.4); EOSINOPHIL % 2.3 % (0.0-4.0); GLUCOSE,URINE NEG (NEG); KETONE, URINE NEG (NEG); LYMPH % 26.3 % (9.0-44.0); LYMPHOCYTE # 2.8 TH/MM3 (1.0-4.8); MEAN CELL VOLUME 86.3 FL (80.0-100.0); MEAN CORPUSCULAR HEMOGLOBIN 29.4 PG (27.0-34.0); MEAN CORPUSCULAR HGB CONC 34.1 % (32.0-36.0); MEAN PLATELET VOLUME 8.1 FL (7.0-11.0); MONO % 5.8 % (0.0-8.0); MONOCYTE # 0.6 TH/MM3 (0-0.9); NEUT % 64.5 % (16.0-70.0); NITRITE,URINE NEG (NEG); PLATELET COUNT 323 TH/MM3 (150-450); RED CELL DISTRIBUTION WIDTH 12.5 % (11.6-17.2); URINE COLOR YELLOW (YELLW/STRAW); URINE LEUKOCYTE ESTERASE NEG (NEG); WHITE BLOOD COUNT 10.5 TH/MM3 (4.0-11.0)
[2017-05-11 22:31] LABS: CHLORIDE 104 MEQ/L (98-107); SODIUM (NA) 139 MEQ/L (136-145)
[2017-05-11 22:35] LABS: ALBUMIN 3.4 GM/DL (3.4-5.0); BICARBONATE 29.2 MEQ/L (21.0-32.0); BLOOD UREA NITROGEN 10 MG/DL (7-18); CALCIUM 8.5 MG/DL (8.5-10.1); GLUCOSE,RANDOM 97 MG/DL (74-106)
[2017-05-11 22:39] LABS: ALT (GPT) 37 U/L (10-53); AST (GOT) 19 U/L (15-37); CREATININE 0.62 MG/DL (0.50-1.00); GLOMERULAR FILTRATION RATE 114 ML/MIN (>89)
[2017-05-11 22:40] LABS: INTERNATIONAL NORMALIZED RATIO 1.1 RATIO; PROTHROMBIN TIME - PATIENT 11.1 SEC (9.8-11.6); TOTAL BILIRUBIN ADULT 0.3 MG/DL (0.2-1.0); TOTAL PROTEIN 7.3 GM/DL (6.4-8.2)
[2017-05-11 22:41] LABS: ALKALINE PHOSPHATASE 132 U/L (45-117)
[2017-05-11 22:45] LABS: RBC, URINE 0-2 /hpf (0-3); SQUAMOUS EPITHELIAL CELL URINE > 8 /hpf (0-5); WBC, URINE 0-2 /hpf (0-5)
[2017-05-11] MEDS ORDERED: MORPHINE SULFATE 2 MG/ML SYRINGE IV PUSH ONE (23:00)
--- NOTE | 2017-05-11 23:21 | RADRPT ---
EXAM DATE/TIME: 05/11/2017 22:53 [facility] COMPARISON: No previous studies available for comparison. INDICATIONS : Pelvic pain. MEDICAL HISTORY : Hypertension. Renal calculi. Pneumonia. Ovarian cysts. Asthma. Depression. Anxiety. SURGICAL HISTORY : section. Kidney stone stent. Ovarian cyst drainage. Right oophorectomy. ENCOUNTER: Initial ACUITY: 1 day PAIN SCORE: 7/10 LOCATION: Bilateral pelvis MEASUREMENTS: UTERUS: 8.8 x 5.4 x 3.8 cm ENDOMETRIAL STRIPE: 10 mm RIGHT OVARY: Oophorectomy LEFT OVARY: 4.8 x 4.1 x 3.0 cm FINDINGS: UTERUS: The myometrium has homogeneous echotexture without mass. RIGHT OVARY: Surgically absent LEFT OVARY: Multiple cysts present the largest just under 4 cm. MISCELLANEOUS: No free fluid. CONCLUSION: Multiple small left ovarian cysts. Som Haque MD on May 11, 2017 at 23:17 Board Certified Radiologist. This report was verified electronically.
[2017-05-12] VITALS: BP 138/85; PULSE 87; RESP 18; TEMP 98.2; O2SAT 98
[2017-05-12] MEDS ORDERED: MORPHINE SULFATE 2 MG/ML SYRINGE IV PUSH ONE (00:15)
[2017-05-12] MEDS ORDERED: KETOROLAC TROMETHAMINE 30 MG/ML (IVP) VIAL IV PUSH ONE (00:30)
[2017-05-12] MEDS ORDERED: IOHEXOL 350 MG/ML 10 ML VIAL (for RAD DIAG) IVCONTRAST ONE ×2 (01:05→21:01)
--- NOTE | 2017-05-12 01:29 | RADRPT ---
EXAM DATE/TIME: 05/12/2017 00:58 [place] COMPARISON: CT ABDOMEN & PELVIS W/O CONTRAST, January 07, 2017, 4:46. INDICATIONS : Lower abdominal pain. IV CONTRAST: 100 cc Omnipaque 350 (iohexol) IV ORAL CONTRAST: No oral contrast ingested. RADIATION DOSE: 26.76 CTDIvol (mGy) ; Patient body habitus MEDICAL HISTORY : Renal calculi. Hypertension. SURGICAL HISTORY : section.Oopherectomy, right. Ovarian cyst drainage. ENCOUNTER: Initial ACUITY: 1 day PAIN SCALE: 7/10 LOCATION: lower quadrant abdomen TECHNIQUE: Volumetric scanning of the abdomen and pelvis was performed. Using automated exposure control and ad justment of the mA and/or kV according to patient size, radiation dose was kept as low as reasonably achievable to obtain optimal diagnostic quality images. DICOM format image data is available electro nically for review and comparison. FINDINGS: LOWER LUNGS: The visualized lower lungs are clear. LIVER: Homogeneous density without lesion. There is no dilation of the biliary tree. No calcified gallston es. SPLEEN: Normal size without lesion. PANCREAS: Within normal limits. KIDNEYS: Multiple bilateral nonobstructing kidney stones again noted, largest a 10 mm stone in the upper pole collecting system of the right kidney. Several cysts in the left kidney. No evidence of hydronephrosi s. ADRENAL GLANDS: Within normal limits. VASCULAR: There is no aortic aneurysm. BOWEL/MESENTERY: There is hazy induration in the root of the mesentery and multiple mildly enlarged mesenteric root ly mph nodes. The appearance is nonspecific. There is no abnormal dilatation of bowel. No definite wall thickening or inflammatory change otherwise identified. ABDOMINAL WALL: Within normal limits. RETROPERITONEUM: There is no lymphadenopathy. BLADDER: No wall thickening or mass. REPRODUCTIVE: There is a slightly greater than 7 cm bilobed cystic complex in the left adnexal region. INGUINAL: There is no lymphadenopathy or hernia. MUSCULOSKELETAL: Within normal limits for patient age. CONCLUSION: Nonspecific indurative changes and alfonso enlargement in the mesenteric root. This would most commonly relate to gastroenteritis, however followup to document clearance would be suggested. Nonobstructing kidney stones bilaterally. Left adnexal cysts. Som Haque MD on May 12, 2017 at 1:18 Board Certified Radiologist. This report was verified electronically.
[2017-05-12] MEDS ORDERED: IBUP-232 PO (02:11)
--- NOTE | 2017-05-12 02:14 | PD ---
Physical Exam Time Seen by Provider: 02:[address] Hansen left this patient with me to check the CT scan and make a disposition, likely discharge. Data Data Last Documented VS Vital Signs Date Time Temp Pulse Resp B/P (MAP) Pulse Ox O2 Delivery O2 Flow Rate FiO2 05/12/17 00:17 18 05/11/17 22:02 97 Room Air 05/11/17 21:03 98.7 97 186/92 (123) Orders Orders Complete Blood Count With Diff (05/11/17 21:57) Comprehensive Metabolic Panel (05/11/17 21:57) Prothrombin Time / Inr (Pt) (05/11/17 21:57) Act Partial Throm Time (Ptt) (05/11/17 21:57) Urinalysis - C+S If Indicated (05/11/17 21:57) Iv Access Insert/Monitor (05/11/17 21:57) Ecg Monitoring (05/11/17 21:57) Oximetry (05/11/17 21:57) Sodium Chlor 0.9% 1000 Ml Inj (Ns 1000 M (05/11/17 21:57) Sodium Chloride 0.9% Flush (Ns Flush) (05/11/17 22:00) Ed Urine Pregnancytest Poc (05/11/17 21:57) Beta Hcg (Quant/Titer) (05/11/17 21:57) Gc And Chlamydia Pcr (05/11/17 22:19) Morphine Inj (Morphine Inj) (05/11/17 23:00) Us Pelvis Comp W Doppler (05/11/17 ) Gc And Chlamydia Pcr (05/12/17 00:07) Wet Prep Profile (05/12/17 00:07) Morphine Inj (Morphine Inj) (05/12/17 00:15) Ct Abd/Pel W Iv Contrast(Rout) (05/12/17 00:10) Ketorolac Inj (Toradol Inj) (05/12/17 00:30) Iohexol 350 Inj (Omnipaque 350 Inj) (05/12/17 01:05) Labs Laboratory Tests Test 05/11/17 22:02 05/12/17 00:17 White Blood Count 10.5 TH/MM3 Red Blood Count 4.40 MIL/MM3 Hemoglobin 13.0 GM/DL Hematocrit 38.0 % Mean Corpuscular Volume 86.3 FL Mean Corpuscular Hemoglobin 29.4 PG Mean Corpuscular Hemoglobin Concent 34.1 % Red Cell Distribution Width 12.5 % Platelet Count 323 TH/MM3 Mean Platelet Volume 8.1 FL Neutrophils (%) (Auto) 64.5 % Lymphocytes (%) (Auto) 26.3 % Monocytes (%) (Auto) 5.8 % Eosinophils (%) (Auto) 2.3 % Basophils (%) (Auto) 1.1 % Neutrophils # (Auto) 6.8 TH/MM3 Lymphocytes # (Auto) 2.8 TH/MM3 Monocytes # (Auto) 0.6 TH/MM3 Eosinophils # (Auto) 0.2 TH/MM3 Basophils # (Auto) 0.1 TH/MM3 CBC Comment DIFF FINAL Differential Comment Prothrombin Time 11.1 SEC Prothromb Time International Ratio 1.1 RATIO Activated Partial Thromboplast Time 28.8 SEC Urine Color YELLOW Urine Turbidity CLEAR Urine pH 7.0 Urine Specific [place] 1.015 Urine Protein NEG mg/dL Urine Glucose (UA) NEG mg/dL Urine Ketones NEG mg/dL Urine Occult Blood NEG Urine Nitrite NEG Urine Bilirubin NEG Urine Urobilinogen 1.0 MG/DL Urine Leukocyte Esterase NEG Urine RBC 0-2 /hpf Urine WBC 0-2 /hpf Urine Squamous Epithelial Cells > 8 /hpf Urine Bacteria NONE /hpf Microscopic Urinalysis Comment CULT NOT INDICATED Blood Urea Nitrogen 10 MG/DL Creatinine 0.62 MG/DL Random Glucose 97 MG/DL Total Protein 7.3 GM/DL Albumin 3.4 GM/DL Calcium Level 8.5 MG/DL Alkaline Phosphatase 132 U/L Aspartate Amino Transf (AST/SGOT) 19 U/L Alanine Aminotransferase (ALT/SGPT) 37 U/L Total Bilirubin 0.3 MG/DL Sodium Level 139 MEQ/L Potassium Level 3.6 MEQ/L Chloride Level 104 MEQ/L Carbon Dioxide Level 29.2 MEQ/L Anion Gap 6 MEQ/L Estimat Glomerular Filtration Rate 114 ML/MIN Human Chorionic Gonadotropin, Quant LESS THAN 1 MIU/ML Clue Cells (Wet Prep) NONE SEEN Vaginal Trichomonas (Wet Prep) NONE SEEN Vaginal Yeast (Wet Prep) NONE SEEN MDM Medical Record Reviewed: Yes Supervised Visit with TALITA: No Interpretation(s) The CT scan shows nonspecific indurative changes and alfonso enlargement in the mesenteric root. This may be likely and is most likely gastroenteritis. Nonobstructing kidney stones are also noted bilaterally. The CBC is normal. The complete metabolic profile is normal except for an alkaline phosphatase of 132. The beta-hCG is less than 1. The urine is normal and cultures not indicated. Wet prep is negative for clue cells, trichomonas and vaginal yeast. Differential Diagnosis Ovarian cyst, colitis, kidney stones, diverticulitis. Narrative Course The patient likely has an ovarian cyst. She will be given Motrin 600 mg 3 times a day as needed. She should follow-up with a surgical rn. Diagnosis Primary Impression: Abdominal pain Qualified Codes: R10.32 - Left lower quadrant pain Additional Impression: Ovarian cyst Qualified Codes: N83.202 - Unspecified ovarian cyst, left side Patient Instructions: General Instructions, Narcotic given in the ED Additional Instruction: Please provide patient with a copy of their lab work and studies at discharge* * Please follow up with your primary care doctor in 2-3 days Return to the ER if symptoms worsen or progress Return to the ER as needed Med/Other Pt SpecificInfo: Prescription(s) given Scripts Ibuprofen (Ibuprofen) 600 Mg Tab 600 MG PO TID, #30 TAB 0 Refills Prov: Mahesh Gregorio MD 05/12/17 Disposition: DISCHARGE HOME Condition: Stable Mahesh Gregorio MD May 12, 2017 02:14
[2017-05-12 02:51] VITALS: BP 140/84; PULSE 92; RESP 16; O2SAT 97
== END 2017-05-12 02:56 | disposition home or self-care (01) ==
LOC: PHED 21:00
DX: R10.32 Left lower quadrant pain (principal); N83.202 Unspecified ovarian cyst, left side; N20.0 Calculus of kidney; J45.909 Unspecified asthma, uncomplicated; F41.9 Anxiety disorder, unspecified; F32.9 Major depressive disorder, single episode, unspecified; I10 Essential (primary) hypertension; Z88.0 Allergy status to penicillin; Z79.899 Other long term (current) drug therapy
CPT/HCPCS: 74177; 76856; 80053; 81001; 84702; 84703; 85025; 85610; 85730; 87210; 87491; 87591; 93975; 96361; 96374; 96375; 96376; 99284; J1885; J2270; J7030; Q9967

== ENCOUNTER 2018-01-11 09:59 | Inpatient (IN) ==
[2018-01-11 11:51] LABS: Protein/Creatinine Ratio,Urine 0.51 (0.00-0.14); Total Protein,Urine Random 39.1 mg/dL (0-11.8)
[2018-01-11 11:52] LABS: Bacteria,Urine Few /hpf; Bilirubin,Urine Negative (Negative); Clarity,Urine Hazy (Clear); Color,Urine Yellow (Yellw/Straw); Glucose,Urine (UA) Negative (Negative); Leukocyte Esterase,Urine Large (Negative); Mucus,Urine Few /lpf (Occasional); Nitrite,Urine Negative (Negative); Specific Gravity,Urine 1.011 (1.002-1.035); Squamous Epithelial Cell,Urine 4 /hpf (0-5)
[2018-01-11 11:58] LABS: Albumin 3.2 g/dL (3.4-5.0); Anion Gap 9 meq/L (5-15); Aspartate Aminotransferase 23 U/L (15-37); Blood Urea Nitrogen 6 mg/dL (7-18); Calcium 8.9 mg/dL (8.5-10.1); Carbon Dioxide 23.3 meq/L (21.0-32.0); Chloride 106 meq/L (98-107); Glomerular Filtration Rate Greater Than 89 mL/min (>89); Glucose,Random 81 mg/dL (74-106); Potassium 3.8 meq/L (3.5-5.1); Sodium 138 meq/L (136-145)
[2018-01-11 11:59] LABS: Alanine Aminotransferase 23 U/L (10-53)
[2018-01-11 12:01] LABS: Alkaline Phosphatase 82 U/L (45-117); Total Protein 7.2 g/dL (6.4-8.2)
[2018-01-11 12:21] LABS: Hematocrit 37.8 % (35.0-46.0); Hemoglobin 13.1 gm/dL (11.6-15.3); Mean Corpuscular HGB Conc 34.8 % (32.0-36.0); Mean Platelet Volume 8.2 fL (7.0-11.0); Platelet Count 227 th/mm3 (150-450); Red Cell Distribution Width 13.1 % (11.6-17.2); White Blood Count 13.6 th/mm3 (4.0-11.0)
[2018-01-11] MEDS ORDERED: Zolpidem Tartrate 5 MG Tablet PO PRN (12:29)
[2018-01-11] MEDS ORDERED: Mag Sulf/Water 4 gm/100 ml 100 ML IV.SIG ONE (12:29)
--- NOTE | 2018-01-11 12:29 | P.HPOB ---
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 Verbal report diastolic was 110. Patient seen by Dr. Galvan initiated on nifedipine 30 mg XL and as of yesterday increased from daily dosing to twice daily dosing. She reports that she has had headaches migraines without with nausea vomiting. She does not know for certain if she has a history of chronic hypertension Weeks Gestation:: 24 Para: 2 : 3 Review of Systems All other systems reviewed negative except as stated in HPI PMFSH - History History Provided By: Patient - Medical History Medical History: Medical History (Last Updated 12/22/17 @ 11:54 by Nara Ferreira RN) Kidney stones Ovarian cyst - Surgical History Surgical History: Surgical History (Last Reviewed 12/22/17 @ 11:54 by Nara Ferreira RN) H/O oophorectomy Previous section - Tobacco History Second Hand Smoke Exposure: No Smoking Status: Former smoker Tobacco Type: Cigarettes - Alcohol History How Often Do You Have a Drink Containing Alcohol: Never - Substance Use History Substance History: No History of Abuse - Travel History Recent Travel in the [place] Within the Last 8 Weeks: No Recent Travel Out of the Country Within the Last 8 Weeks: No - Immunization History Tetanus Immunization: Unsure Hx Influenza Vaccine This Season: Yes Medications and Allergies Allergies Allergy/AdvReac Type Severity Reaction Status Date / Time penicillin G Allergy Mild Rash Verified 12/22/17 11:32 Home Medications Medication Instructions Recorded Confirmed Type PNV [id number]#[id number]-ferrous fumarate-FA 1 tab PO DAILY 12/22/17 01/11/18 History [] ferrous sulfate [Iron (ferrous 325 mg PO DAILY 01/11/18 01/11/18 History sulfate)] folic acid 2 mg PO DAILY 01/11/18 01/11/18 History nifedipine [Procardia XL] 30 mg PO BID 01/11/18 01/11/18 History Exam Vital signs: Vital Signs 01/11/18 10:30 01/11/18 10:46 01/11/18 11:01 Temperature 98.2 F Pulse Rate 97 H 100 H 94 H Respiratory Rate 18 Blood Pressure 143/86 H 148/98 H 145/80 H 01/11/18 11:31 Temperature Pulse Rate 95 H Respiratory Rate Blood Pressure 155/90 H Intake & Output 01/10/18 01/11/18 01/11/18 18:59 06:59 18:59 Weight 140 kg Other: Weight On Admission 140 kg Narrative: GENERAL: Well-nourished, well-developed patient, morbidly obese SKIN: Warm and dry. HEAD: Normocephalic and atraumatic. EYES: No scleral icterus. No injection or drainage. ENT: No nasal drainage noted. Mucous membranes pink. Airway patent. NECK: Supple, trachea midline. No JVD. CARDIOVASCULAR: Regular rate and rhythm without murmurs, gallops, or rubs. RESPIRATORY: Breath sounds equal bilaterally. No accessory muscle use. BREASTS: Bilateral exam showed no masses , no retractions, no nipple discharge. ABDOMEN/GI: Abdomen soft, non-tender, bowel sounds present, no rebound, no guarding Gravid to 24-week weeks size Fundal Height: 24-week GENITOURINARY: External Genitalia: intact and normal in appearance BUS glands: Deferred Cervix: Deferred FHT's: Category: 1 Variability: Moderate EXTREMITIES: No cyanosis or edema. BACK: Nontender without obvious deformity. No CVA tenderness. NEUROLOGICAL: Awake and alert. Motor and sensory grossly within normal limits. Five out of 5 muscle strength in all muscle groups. +1 pedal edema, brisk reflexes in the upper extremities ,normal speech. Results - Labs CBC & Chem 7: 01/11/18 11:15 01/11/18 11:15 Labs: Laboratory Results - last 24 hr 01/11/18 01/11/18 01/11/18 10:10 10:10 11:15 Sodium 138 Potassium 3.8 Chloride 106 Carbon Dioxide 23.3 Anion Gap 9 BUN 6 L Creatinine 0.54 Estimated GFR Greater than 89 Random Glucose 81 Calcium 8.9 Total Bilirubin 0.3 AST 23 ALT 23 Alkaline Phosphatase 82 Total Protein 7.2 Albumin 3.2 L Urine Color Yellow Urine Clarity Hazy H Urine pH 6.0 Ur Specific [place] 1.011 Urine Protein 30 H Urine Glucose (UA) Negative Urine Ketones Negative Urine Occult Blood Negative Urine Nitrate Negative Urine Bilirubin Negative Urine Urobilinogen Less than 2 Ur Leukocyte Esterase Large H Urine RBC 1 Urine WBC 10 H Ur Squamous Epith Cells 4 Urine Bacteria Few H Urine Mucus Few H Micro UA Comment Culture indicated Ur Microscopic Review Not Reportable Urine Culture Comments Culture indicated Ur Random Creatinine 77 U Random Total Protein 39.1 H Protein/Creatinin Ratio 0.51 H Assessment and Plan - Diagnosis (1) 24 weeks gestation of Code(s): Z3A.24 - 24 weeks gestation of Status: Acute (2) Elevated blood pressure affecting in second trimester, antepartum Code(s): O16.2 - Unspecified maternal hypertension, second trimester Status: Acute - Plan Discussed with Dr. Galvan plan admission-her protein to creatinine ratio is actually elevated she will be started on magnesium sulfate as well as steroids and possible transfer due to the gestational age Discharge Plan - Discharge Disposition Patient Disposition: ED Admit(ED Internal Use Only)
[2018-01-11] MEDS ORDERED: Betamethasone Sod Phos/Acetate Inj 30 MG/5 ML Vial IM SCH (12:30)
[2018-01-11] MEDS ORDERED: Mag Sulf/Water 40 gm/1000 ml 40 GM/1,000 ML BAG IV.CONT SCH (13:00)
--- NOTE | 2018-01-11 15:04 | P.OBGPN ---
Received a call from Dr. Galvan-he is requesting to have the patient transferred. I have seen the patient also discussed with the patient plan of care. She continues to complain of headache she has been started on magnesium sulfate and also betamethasone. Reviewing her records she was started on Procardia by the ED secondary to blood pressure 190/110 and this was December 20 at that time she had also had headache nausea vomiting. 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 While she was seeing [facility] today [facility] her blood pressure reported as 168-182 over diastolics of 103-105 diastolic by verbal report as high as 110. Patient brought to the triage area labs were performed no signs of help syndrome however her protein creatinine ratio elevated at 0.51. The estimated weight is 622 g. I contacted [facility] and spoke to Dr. Beaver-he has maternal medicine and agrees to accept the patient as long as there is space available at the facility will contact us back.
[2018-01-11] MEDS ORDERED: Labetalol HCl Inj 100 MG/20 ML Vial ONE (16:37)
[2018-01-11] MEDS ORDERED: Labetalol HCl Inj 100 MG/20 ML Vial IV.PUSH PRN ×3 (17:00→17:21)
[2018-01-11] MEDS ORDERED: Labetalol 200 MG Tablet PO ONE (18:00)
[2018-01-12 05:02] VITALS: RESP 18
[2018-01-12 05:04] VITALS: TEMP 97.8
[2018-01-12 05:06] VITALS: BP 145/88; PULSE 102
[2018-01-12] MEDS ORDERED: Prenatal Vit/Ca/Iron/Folic Acid Tablet PO SCH (09:00)
[2018-01-12] MEDS ORDERED: Folic Acid 1 MG Tablet PO SCH (09:00)
== END 2018-01-12 06:20 | disposition short-term general hospital (02) ==
LOC: H2E 09:59 → HOBED 09:59 → OBSVTOIN 12:00 → H2E 12:00
PROVIDERS: ADMIT Obstetrics & Gynecology; ATTEND Obstetrics & Gynecology